=== PATIENT | male | born 1945 | race Caucasian/White ===

== ENCOUNTER → 2024-09-02 | Outpatient (CLI) | payer MEDICARE, SELFPAY ==
--- NOTE | 2024-09-02 16:27 | XR_ITS ---
Examination: PA lateral chest 2 views TECHNIQUE: Upright PA and lateral chest 2 views Date and time: September 02, 2024, 1636 hours INDICATIONS: Shortness of breath today. FINDINGS: Mild chronic heart failure pattern. Moderate enlargement cardiac contour. Pulmonary vascular congestion. Early septal edema at the lung bases. Ventricular cardiac lead satisfactory position IMPRESSION: Mild chronic heart failure pattern
== END | disposition home or self-care (01) ==
PROVIDERS: Referring Provider Nurse Practitioner Family; Visit Provider Nurse Practitioner Family
DX: R06.02 Shortness of breath (principal)
CPT/HCPCS: 71046

== ENCOUNTER → 2024-10-09 | Outpatient (CLI) | payer MEDICARE, SELFPAY ==
--- NOTE | 2024-10-09 15:03 | XR_ITS ---
Examination: Right foot 2 views Technique one AP lateral right foot 2 views Date and time: October 09, 2024 1528 hours INDICATIONS: Redness swelling and pain infection right second digit over 2 weeks. FINDINGS: Severe osteopenia Old fractures second fourth and fifth metatarsals No acute fracture No cortical bone destruction Advanced osteoarthritis first metatarsophalangeal joint 5 mm plantar bony calcaneal spur IMPRESSION: No marilin cortical bone destruction
== END | disposition home or self-care (01) ==
PROVIDERS: PCP Family Medicine; Referring Provider Nurse Practitioner Family; Visit Provider Nurse Practitioner Family
DX: B36.9 Superficial mycosis, unspecified (principal)
CPT/HCPCS: 73620